=== PATIENT | female | born 1965 | race Two or more races ===

== ENCOUNTER 2019-07-08 06:00 | Day surgery (SDC) | payer OTHER ==
[~2019-07-08 06:00] MED LIST: AMBIEN10 MG PO; CLONAZEPAM1 MG PO; EFFEXOR XR75 MG PO; ELIQUIS5 M1 PO; GABAPENTIN800 M1 PO; METFORMIN HCL500 M3 PO; TOPROL XL25 M1 PO; ZYLOPRIM300 MG PO
[2019-07-08] MEDS ORDERED: PERCOCET 5-3251 EACH PO (10:32)
[2019-07-08] MEDS ORDERED: RECTICARE30 GM TOP (10:33)
== END 2019-07-08 16:45 | disposition home or self-care (01) ==
LOC: CIR.AMB 06:00
DX: K64.8 Other hemorrhoids (principal); K64.4 Residual hemorrhoidal skin tags